=== PATIENT | female | born 1955 | race Caucasian/White ===

== ENCOUNTER → 2021-01-16 | Outpatient (CLI) | payer OTHER ==
[~2021-01-16] MED LIST: LANTUS100 UNIT/1 SQ; NORCO 5-325 TA1 EACH PO; NOVOLOG FL100 UNIT/1 INJ; PROTONIX40 MG PO; XANAX0.5 MG PO
== END ==
LOC: EXRD 01-13 13:45
DX: I73.9 Peripheral vascular disease, unspecified (principal); I70.92 Chronic total occlusion of artery of the extremities; M79.605 Pain in left leg; M79.604 Pain in right leg; R94.30 Abnormal result of cardiovascular function study, unspecified
CPT/HCPCS: 93880; 93922; 93925